=== PATIENT | female | born 1970 | race Caucasian/White ===

== ENCOUNTER → 2017-08-21 | Outpatient (CLI) | payer MEDICAID ==
[~2017-08-21] MED LIST: ALBU18HF INH; AMLO5TAB4 PO; ASPI-496 PO; ATEN50TA41 PO; BECL8.7A6 INH; CLON-364 PO; FLUO20CA8 PO; ISOS30TA21 PO; LISI40TA PO; MECL25TA4 PO; METH500T7 PO; OXYC1TAB7 PO; OXYC5CAP2 PO; PANT20TA3 PO; ZOLP-413 PO
== END | disposition home or self-care (01) ==
LOC: CARD 13:52
PROVIDERS: ATTEND Internal Medicine Clinical Cardiac Electrophysiology
DX: R06.02 Shortness of breath (principal)
CPT/HCPCS: 94010; 94726; 94729